=== PATIENT | male | born 1955 | race Caucasian/White ===

== ENCOUNTER 2017-01-22 20:48 | Emergency (ER) | payer BC ==
[2017-01-22 21:04] VITALS: BP 158/90
[2017-01-22] MEDS ORDERED: DOXYcycline CAP(*) 100 MG PO ONE (21:21)
--- NOTE | 2017-01-22 21:27 | UC ---
Skin Complaint HPI - HPI Summary HPI Summary: 61 yo male with tick bite x>24 hrs removed this PM by - History of Current Complaint Chief Complaint: UCSkin Time Seen by Provider: 01/22/17 21:03 Stated Complaint: TICK BITE Hx Obtained From: Patient Onset/Duration: Sudden Onset, Lasting Hours Timing: Constant Onset Severity: Mild Current Severity: None Pain Intensity: 0 Pain Scale Used: 0-10 Numeric Location: Other - back Aggravating: Nothing Alleviating: Other - tick removal Related History: Insect Bite/Sting - Allergy/Home Medications Allergies/Adverse Reactions: Allergies Allergy/AdvReac Type Severity Reaction Status Date / Time No Known Allergies Allergy Verified 01/22/17 21:04 Review of Systems Constitutional: Negative Skin: Negative Eyes: Negative ENT: Negative Respiratory: Negative Cardiovascular: Negative Gastrointestinal: Negative Genitourinary: Negative Motor: Negative Neurovascular: Negative Musculoskeletal: Negative Neurological: Negative Psychological: Negative All Other Systems Reviewed And Are Negative: Yes PMH/Surg Hx/FS Hx/Imm Hx Previously Healthy: Yes Endocrine History Of: Denies: Diabetes, Thyroid Disease Cardiovascular History Of: Denies: Cardiac Disorders, Hypertension Respiratory History Of: Denies: COPD, Asthma GI/ History Of: Denies: Ulcer - Surgical History Surgical History: Yes Surgery Procedure, Year, and Place: KNEE ARTHROSCOPY - Social History Alcohol Use: Occasionally Substance Use Type: None Smoking Status (MU): Never Smoked Tobacco Physical Exam Triage Information Reviewed: Yes Appearance: Well-Appearing, No Pain Distress, Well-Nourished Vital Signs: Initial Vital Signs Temp 98.3 F 01/22/17 21:00 Pulse 81 01/22/17 21:00 Resp 18 01/22/17 21:00 BP 158/90 01/22/17 21:00 Pulse Ox 97 01/22/17 21:00 Vital Signs Reviewed: Yes Eyes: Positive: Conjunctiva Clear ENT: Positive: Hearing grossly normal. Negative: Nasal congestion, Nasal drainage, Trismus, Muffled/hoarse voice Neck: Positive: Supple, Nontender Respiratory: Positive: Lungs clear, Normal breath sounds, No respiratory distress, No accessory muscle use Cardiovascular: Positive: RRR Musculoskeletal: Positive: ROM Intact, No Edema Neurological: Positive: Alert Psychological Exam: Normal Skin Exam: Other - see image Course/Dx - Diagnoses Provider Diagnoses: tick bite. Lyme Disease prophylaxis Discharge - Discharge Plan Condition: Stable Disposition: HOME Patient Education Materials: Tick Bite (ED) Referrals: Lawrence Rodgers MD [Primary Care Provider] - If Needed Additional Instructions: take 200mg of doxy with food when you get home tonight Images Front/Back of Body, Lg (Nicholas): 1 - tick bite/mild swelling
== END 2017-01-22 21:37 | disposition home or self-care (01) ==
LOC: UCEAST 20:48
DX: S20.462A Insect bite (nonvenomous) of left back wall of thorax, initial encounter (principal); W57.XXXA Bitten or stung by nonvenomous insect and other nonvenomous arthropods, initial encounter; Y93.9 Activity, unspecified; Y92.9 Unspecified place or not applicable
CPT/HCPCS: 99212; A9270-GY; G0463

== ENCOUNTER → 2019-10-01 05:36 | Day surgery (SDC) | payer BC, OTHER ==
--- NOTE | 2019-09-03 16:15 | HP ---
CC: Dr. Garcia * PREOPERATIVE HISTORY AND PHYSICAL: DATE OF ADMISSION/SURGERY: 10/01/19 This patient is scheduled for same-day surgery admission by Dr. Mckeon on 10/01. DATE OF PREOPERATIVE HISTORY AND PHYSICAL EXAMINATION: 09/03/19. ATTENDING SURGEON: Dr. Tony Mckeon * (dictated by Maria Antonia Zee NP). CHIEF COMPLAINT: Umbilical hernia. HISTORY OF PRESENT ILLNESS: The patient is a 63-year-old male, recently evaluated by Dr. Mckeon for an umbilical hernia. He was seen by Dr. Mckeon 1 year ago, but at that time had been diagnosed with prostate cancer and was in a clinical trial at [facility] in [facility]. He completed radiation therapy in December 2018 and hormonal therapy in March 2019 and wishes now to proceed with open umbilical hernia repair and Dr. Mckeon has discussed the nature of the surgery with the patient and has recommended the use of mesh. Dr. Mckeon discussed the relevant risks, benefits and alternatives and today I reviewed the expected postoperative care and recovery. The patient has had a chance to ask questions and stated that he understands the information and is satisfied with the answers given to his questions. He will sign surgical consent on the day of surgery. PAST MEDICAL HISTORY: Prostate cancer, treated with radiation therapy and hormones; hyperlipidemia. PAST SURGICAL HISTORY: Left knee arthroscopy many years ago. MEDICATIONS: 1. Atorvastatin 40 mg p.o. daily. 2. Multivitamin p.o. daily. ALLERGIES: No known drug allergies. FAMILY HISTORY: No known anesthesia complications or bleeding tendencies or clotting disorders. Mother with a history of breast cancer. Father with a history of lung cancer. SOCIAL HISTORY: He is ; he walks daily for exercise. He is a nonsmoker. He drinks 1 to 5 alcoholic beverages per week. REVIEW OF SYSTEMS: Constitutional: No fevers, chills, excessive fatigue or weight loss. General: No previous anesthesia complications. No history of deep vein thrombosis or pulmonary embolism. No bleeding tendencies. No history of blood transfusions. Endocrine: No diabetes or thyroid disease. Respiratory: No dyspnea on exertion, no chronic cough. Cardiovascular: No anginal chest pain or palpitations. Gastrointestinal: No nausea, vomiting, diarrhea, GI bleeding, constipation, or change in bowel habits. Genitourinary: No dysuria. Musculoskeletal: Normal strength and tone. Integumentary: No chronic rashes or skin changes. Neurologic: No headache or blurred vision. No areas of focal weakness or numbness. Psychiatric: No reported anxiety, depression, or insomnia. PHYSICAL EXAMINATION GENERAL SURVEY: The patient is a 63-year-old male, well developed, well nourished, in no acute distress. VITAL SIGNS: Height 69.5 inches, weight 204 pounds, body mass index 29.7. Blood pressure 126/82, pulse 72 and regular, respiratory rate 16, temperature 97.7. HEENT: Benign. NECK: Supple. No cervical lymphadenopathy. BACK: No CVA tenderness. LUNGS: Breath sounds bilaterally clear and equal. HEART: Regular rate and rhythm. No murmurs or rubs appreciated. ABDOMEN: Active bowel sounds, soft, nondistended. Obvious umbilical hernia defect measuring approximately 2.5 cm in diameter, no protruding contents. Abdomen is soft and nontender throughout with no other obvious masses or organomegaly. GENITALIA EXAM: Deferred. RECTAL EXAM: Deferred. EXTREMITIES: Warm without edema or skin ulceration. NEUROLOGIC: Alert and oriented x3. Steady gait. SKIN: Warm, dry, intact. IMPRESSION: Umbilical hernia. PLAN: Same-day surgery admission to Dr. Mckeon' service for open umbilical hernia repair with mesh on 10/01/19. CASSANDRA ZEE NP [id number]/[facility] #: [id number] [facility]
[~2019-10-01 05:36] MED LIST: Acetaminophen IV 1GM/100ML * 100 ML ONE; Buffered Lidocaine 1% SYRIN* 1 ML/SYRINGE INTRADERM ONE; Bupivacaine 0.25% EPI 200,000* 30 ML SDV ONE; Dexamethasone TAB* 4 MG ONE; Dexamethasone TAB* 4 MG PO ONE; DiMENhydriNATE IV* 50 MG/ML VIAL IV PUSH PRN; Famotidine IV* 10 MG/ML 2 ML (20 mg) IV ONE; Famotidine IV* 10 MG/ML 2 ML (20 mg) ONE; HYDROmorphone INJ1* 1 MG/ML SYRINGE IV PRN; KETAMINE HCL* 50 MG/ML 10 ML VIAL ONE; Ketorolac INJ* 30 MG/ML 1 ML VIAL ONE; Lactated Ringers 1000 ML Bag* 1,000 ML IV SCH; Lidocaine 1% INJ* 10 MG/ML 30 ML SDV ONE; Lidocaine 2% PF * 5 ML VIAL ONE; Midazolam* 1 MG/ML 5 ML VIAL (5 MG) ONE; Naloxone* 0.4 MG/ML 1 ML VIAL IV PRN; Ondansetron ODT TAB* 4 MG ONE; Ondansetron ODT TAB* 4 MG PO ONE; PROCHLORPERAZINE INJ 5 MG/ML 2 ML VIAL IV PRN; Propofol* 500 MG/50 ML BTL ONE; ceFAZolin 2 GM PREMIX in ORs 2 GM/50 ML BAG ONE; fentaNYL* 50 MCG/ML 2 ML VIAL (100 MCG VIAL) IV PRN; fentaNYL* 50 MCG/ML 2 ML VIAL (100 MCG VIAL) ONE; hydrALAZINE IV* 20 MG/ML VIAL ONE; oxyCODONE TAB* 5 MG TAB PO PRN
--- NOTE | 2019-10-01 08:26 | BRIEFOPN ---
Brief Operative/Procedure Note - Operation Details Pre-Op Diagnosis: Umbilical hernia Post-Op Diagnosis: Umbilical hernia Procedures: Laparoscopic umbilical hernia repair Surgeon(s)/Proceduralists: Dr. Tony Mckeon. Assist: OLEGARIO Jorge Anesthesia: GETA Estimated Blood Loss: <50 cc Findings: As above Specimen(s)/Culture(s) Description: None Complications: None
[2019-10-01 10:22] VITALS: BP 113/68
--- NOTE | 2019-10-01 21:50 | OP ---
Cc: Socorro Garcia MD OPERATIVE REPORT: DATE OF OPERATION: 10/01/19 DATE OF : 53 SURGEON: Tony Mckeon MD NUCLEAR WASTE PROCESS OPERATOR: OLEGARIO Hernandez ANESTHESIOLOGIST: Dr. Fox ANESTHESIA: Local MAC. PRE-OP DIAGNOSIS: Umbilical hernia. POST-OP DIAGNOSIS: Umbilical hernia. OPERATIVE PROCEDURE: Open repair umbilical hernia with mesh. ESTIMATED BLOOD LOSS: Minimal. IV FLUIDS: Crystalloid. SPECIMENS: None. DRAINS: None. COMPLICATIONS: None. COUNTS: Instrument, needle, and sponge count were correct. DESCRIPTION OF PROCEDURE: The patient was brought to the operating room and placed on the table supine. Sequential compression devices were placed on both lower extremities. Intravenous sedation was administered. He received appropriate intravenous antibiotics. He was prepped and draped in the usual steroid fashion and then a time-out was performed. Local anesthetic was infiltrated into the skin and soft tissues as a periumbilical field block. A curvilinear infraumbilical incision was created. Subcutaneous tissues were divided and the umbilical hernia edges were identified. There was preperitoneal fat contained within the hernia, which was reduced. The hernia was initially felt to be about 2 cm, but there was a small bridge of tissue with an additional area with a total defect size of about 2.5 cm to 3 cm. The decision was made to repair this using the Ventrio mesh medium size patch. After clearing the fascial edges circumferentially, the preperitoneal space was developed using a combination of sharp and blunt dissection. Then the mesh patch was positioned in the preperitoneal space that was sutured to the overlying fascia with interrupted 0 Ethibond suture superiorly and inferiorly. The mesh position was confirmed and then the edges of the hernia were closed in a transverse fashion with interrupted 0 Ethibond suture in a [id number] fashion. After completing the closure of the defect , the umbilical stalk was re-created using a 3-0 Vicryl suture tacking this down to the fascia. The incision was then closed in two layers with 3-0 Vicryl used to approximate the subcutaneous tissues and 4-0 Monocryl in a running subcuticular fashion to approximate the skin. Steri-Strips were applied along with the compression dressing. The patient tolerated the procedure well, was awakened, and transferred to Recovery in stable condition. [id number]/[facility] #: [id number] [facility]
== END | disposition home or self-care (01) ==
LOC: OR 05:36
PROVIDERS: ATTEND Surgery
DX: K42.9 Umbilical hernia without obstruction or gangrene (principal); Z85.46 Personal history of malignant neoplasm of prostate; E78.5 Hyperlipidemia, unspecified
CPT/HCPCS: A9270-GY; C1781; J0360; J0690; J1885; J2250; J2704; J3010; J8540